=== PATIENT | female | born 1995 | race Native Hawaiian/Other Pacific Islander ===

== ENCOUNTER 2021-02-07 21:16 | Emergency (ER) | payer OTHER ==
[~2021-02-07] VITALS: Ht 152.4 cm; Wt 83.9 kg
[2021-02-07 22:43] VITALS: BP 124/69; TEMP 98.2
== END 2021-02-07 22:49 | disposition home or self-care (01) ==
LOC: ED 21:16
DX: S00.03XA Contusion of scalp, initial encounter (principal); W20.8XXA Other cause of strike by thrown, projected or falling object, initial encounter; Y92.89 Other specified places as the place of occurrence of the external cause
CPT/HCPCS: 99283

== ENCOUNTER 2022-06-24 06:34 | Emergency (ER) | payer OTHER ==
[~2022-06-24] VITALS: Ht 152.4 cm; Wt 88.5 kg
[2022-06-24 06:50] VITALS: TEMP 98.8
[2022-06-24 08:00] VITALS: BP 128/88
== END 2022-06-24 08:08 | disposition home or self-care (01) ==
LOC: ED 06:34
DX: J45.909 Unspecified asthma, uncomplicated (principal); J10.1 Influenza due to other identified influenza virus with other respiratory manifestations; F17.210 Nicotine dependence, cigarettes, uncomplicated; Z20.822 Contact with and (suspected) exposure to COVID-19
CPT/HCPCS: 87502; 87635; 87651; 99283; U0003